=== PATIENT | male | born 1950 | race Caucasian/White ===

== ENCOUNTER 2020-04-04 09:01 | Outpatient (REF) | payer MEDICARE, OTHER, SELFPAY | END 2020-04-04 09:02 | disposition home or self-care (01) | LOC: HO.LAB 09:01 | PROVIDERS: Visit Provider Internal Medicine | DX: Z13.89 Encounter for screening for other disorder (principal) | CPT/HCPCS: 87635 ==

== ENCOUNTER 2020-04-05 06:59 | Outpatient (REF) | payer MEDICARE, OTHER, SELFPAY ==
[2020-04-05 07:19] LABS: COVID-19 Test Negative (Negative)
== END 2020-04-05 07:00 | disposition home or self-care (01) ==
LOC: HO.LAB 06:59
PROVIDERS: Visit Provider Internal Medicine
DX: Z20.828 Contact with and (suspected) exposure to other viral communicable diseases (principal)
CPT/HCPCS: 87635

== ENCOUNTER 2020-04-08 02:08 | Emergency (ER) | payer MEDICARE, OTHER, SELFPAY ==
[2020-04-08 02:28] VITALS: BMI 16.1
--- NOTE | 2020-04-08 02:48 | CT_ITS ---
EXAMINATION: CT ABDOMEN AND PELVIS WITH CONTRAST CLINICAL INFORMATION: Abdominal pain COMPARISON: None TECHNIQUE: Multidetector volumetric images were obtained from the superior aspect of the liver through the pubic symphysis following administration 85 mL of Omnipaque 350 intravenous contrast. Sagittal and coronal reformatted images were obtained on the technologist's workstation. Oral contrast: No This CT examination was performed using dose optimization techniques as appropriate, variously including the following: *Automated exposure control *Adjustment of mA and/or kV according to patient size (this includes techniques or standardized protocols for targeted exams where dose is matched to indication/reason for exam; i.e. extremities or head) *Use of iterative reconstruction technique DLP: 388 mGy-cm FINDINGS: LUNG BASES: The visualized lung bases are unremarkable. LIVER, GALLBLADDER, AND BILIARY TREE: The liver is normal in size, shape, and attenuation. Small hypodensity in the posterior right hepatic lobe is consistent with a cyst. Additional subcentimeter hypodensity in the dome of the right hepatic lobe is too small to characterize. No biliary ductal dilatation is present. The gallbladder is unremarkable with no evidence of radiopaque gallstones, gallbladder wall thickening, or obvious pericholecystic inflammatory changes. PANCREAS: Unremarkable. SPLEEN: Unremarkable. ADRENAL GLANDS: Unremarkable. KIDNEYS AND URETERS: The kidneys are normal in size, shape, and attenuation. No hydronephrosis, hydroureter, or obstructing calculi seen. No perinephric stranding. BLADDER: Partially distended with diffuse mural prominence. GASTROINTESTINAL TRACT: No evidence of bowel obstruction. There is a diffusely thick-walled appearance of the colon with surrounding stranding, raising suspicion for colitis. There is diverticulosis of the descending and sigmoid colon without convincing evidence for a focal diverticulitis. The appendix is unremarkable. No free fluid or free air is seen. ABDOMINAL WALL: Fat-containing inguinal hernias, left greater than right. LYMPH NODES: Normal. VASCULAR: Moderate atherosclerotic calcification is present. PELVIC VISCERA: Prostate gland appears prominent. OSSEOUS STRUCTURES: Scattered endplate osteophytes are present in the spine. CT/CT abdomen pelvis w con IMPRESSION: 1. Diffusely thick-walled appearance of the colon with adjacent stranding, suspicious for colitis which may be infectious or inflammatory. 2. Diverticulosis of the descending and sigmoid colon. 3. Mural prominence of the urinary bladder, which could be secondary to cystitis or chronic outlet obstruction in the setting of a prominent prostate gland.
--- NOTE | 2020-04-08 02:50 | ED.NAVMDI ---
HPI - Nausea/Vomiting/Diarrhea General Chief complaint: Nausea/Vomiting/Diarrhea Stated complaint: diarrhea Time Seen by Provider: 04/08/20 02:38 History of Present Illness HPI Narrative: Patient is a 69-year-old male with a history of having nausea, vomiting, diarrhea for the last 3-4 days. Positive subjective fever at home. No bloody stool. No coughing or congestion or upper respiratory symptoms. The pain is diffuse over the entire abdomen. There is no radiation of the pain. Patient feels weak and tired presents to the emergency department. Has a history of hypertension. Currently is on Amlodipine. History of reflux. Related Data Home Medications Medication Instructions Recorded Confirmed amlodipine 20 mg PO 2XW 04/08/20 04/08/20 omeprazole 20 mg PO DAILY 04/08/20 04/08/20 sertraline 100 mg PO DAILY 04/08/20 04/08/20 Previous Rx's Medication Instructions Recorded ondansetron 4 mg PO TID PRN 5 Days #10 tab 04/08/20 Allergies Allergy/AdvReac Type Severity Reaction Status Date / Time No Known Allergies Allergy Verified 04/08/20 02:39 Review of Systems Review of Systems: Constitutional: No Weight loss, No Fever, No Chills, No Night Sweats, No Fatigue, No Malaise ENT/Mouth: No Hearing loss, No Ear Pain, No Nasal Congestion, No Sinus Pain, No Hoarseness, No sore throat, No Rhinorrhea, No Swallowing Difficulty Eyes: No Eye Pain, No Swelling, No Redness, No Foreign Body, No Discharge, No Vision Changes Cardiovascular: No Chest Pain, No SOB, No Dyspnea on Exertion, No Orthopnea, No Edema, No Palpitations Respiratory: No Cough, No Sputum, No Wheezing, No Smoke Exposure, No Dyspnea Gastrointestinal: No Nausea, No Vomiting, No Diarrhea, No Constipation, No abdominal Pain, No Hematochezia, No Melena Genitourinary: no irregular bleeding, No Dysuria, No Urinary Frequency, No Hematuria, No Urinary Incontinence, No Urgency, No Flank Pain, No Urinary Flow Changes, No Hesitancy Musculoskeletal: No joint pain, No Myalgias, No Joint Swelling Skin: No Skin Lesions, No rash Neuro: No Weakness, No Numbness, No Paresthesias, No Loss of Consciousness, No Dizziness, No Headache Psych: No Anxiety/Panic, No Depression, No SI/HI/AH/VH, No Social Issues, Heme/Lymph: No Bruising, No Bleeding,No Lymphadenopathy Endocrine: No Polyuria, No Polydipsia, No Temperature Intolerance Yes all other systems are reviewed and are negative [facility] Past Medical History Medical History Depression GERD (gastroesophageal reflux disease) Hypertension Social History Social History Alcohol intake: never Smoking Status: Never smoker Smoked in Last 30 Days: No Use of substances other than those prescribed or required for medical reasons: No Advance Directives: No Advance Directives Information Provided: Yes Physical Exam Vital Signs: Vital Signs: Vital Signs Pulse 04/08/20 03:00 68 Body Mass Index 16.1 Appearance: Alert. Oriented X3. No acute distress. Eyes: Pupils equal, round and reactive to light. ENT: Pharynx normal. Neck: Normal inspection. Neck supple. No lymph nodes noted. No crepitus CVS: Normal heart rate and rhythm. Pulses normal. Normal S1 and S2 Respiratory: No respiratory distress. Breath sounds normal. No Wheezing. No rales Abdomen: Soft and nontender. No rigidity. No distention. good BS x4 Skin: Skin warm and dry. Normal skin color. Normal skin turgor. Extremities: No lower extremity edema. Neurovascular intact to all extremities. No Lacerations. No Rash Neuro: Oriented X 3. No motor deficit. No sensory deficit. Moving all extermities. No slurred speech MDM - Nausea/Vomiting/Diarrhea MDM Narrative Medical decision making narrative: Patient given IV fluid Zofran for nausea. CT scan was done and it did not show any gross obstruction, abscess, perforation. It did show signs of colitis consistent with patient's nausea vomiting diarrhea. Patient well-appearing hemoglobin 16 consistent with dehydration. Will drink lots of fluids at home. Zofran for nausea. Currently in stable condition. Medical Records Attestation: I reviewed the patient's medical records. Lab Data Attestation: I reviewed the patient's lab results. Result diagrams: 04/08/20 02:54 04/08/20 02:54 Labs: Lab Results 04/08/20 04/08/20 Range/Units 02:54 02:54 WBC 5.2 (4.8-10.8) X10*3/uL RBC 5.17 (4.60-5.80) X10*6/uL Hgb 16.8 (14.0-18.0) g/dl Hct 47.4 (42-52) % MCV 91.7 (80-98) fL MCH 32.5 (27.0-33.0) pg MCHC 35.4 (31.0-36.0) g/dl RDW 12.2 (11.0-16.0) % Plt Count 243 (160-400) X10*3/uL MPV 9.5 (9.4-12.4) fL Immature Gran % (Auto) Cancelled Neut % (Auto) Cancelled Lymph % (Auto) Cancelled [place] % (Auto) Cancelled Eos % (Auto) Cancelled Baso % (Auto) Cancelled Lymph # (Auto) Cancelled [place] # (Auto) Cancelled Eos # (Auto) Cancelled Baso # (Auto) Cancelled Abs Immat Gran (auto) Cancelled Absolute Neuts (auto) Cancelled Absolute Nucleated RBC 0.000 (0.0-0.012) X10*3/uL Nucleated RBC % (auto) 0.0 (0.0-0.2) /100WBC Neutrophils % (Manual) 46 (45-73) % Band Neutrophils % 13 H (3-5) % Lymphocytes % (Manual) 23 (20-40) % Monocytes % (Manual) 17 H (2-11) % Eosinophils % (Manual) 1 (0-4) % Abs Neuts (Manual) 3.1 (2.2-7.9) X10*3/uL Lymphocytes # (Manual) 1.2 (0.6-4.8) X10*3/uL Monocytes # (Manual) 0.9 (0.0-1.2) X10*3/uL Eosinophils # (Manual) 0.1 (0.0-0.8) X10*3/UL Platelet Estimate NORMAL (NORMAL) Plt Morphology Comment NORMAL RBC Morphology NORMAL Sodium 138 (135-145) mmol/L Potassium 3.7 (3.3-5.1) mmol/l Chloride 102 (96-108) mmol/L Carbon Dioxide 25 (22-29) mmol/L Anion Gap 15 (12-20) BUN 15 (9-16) mg/dL Creatinine 1.12 (0.5-1.4) mg/dL Estim Creat Clear Calc 38.1 Estimated GFR > 60 Random Glucose 136 H (60-115) mg/dL Calcium 8.5 (8.4-10.2) mg/dL Total Bilirubin 1.0 (0.0-1.0) mg/dL Direct Bilirubin 0.4 (0.0-0.5) mg/dL AST 22 (5-37) U/L ALT 36 (0-40) U/L Alkaline Phosphatase 46 (39-117) U/L Total Protein 6.1 L (6.5-8.0) g/dL Albumin 3.7 (3.5-5.0) g/dL Lipase 26 (8-78) U/L Discharge Plan Discharge Clinical Impression: Gastroenteritis, Dehydration Patient Disposition: Home, Self-Care Instructions: Dehydration (ED), Colitis (ED), Acute Nausea and Vomiting (ED) Additional Instructions: Lots of fluids. Close follow-up with her doctor on an outpatient basis. Prescriptions: New ondansetron 4 mg tablet,disintegrating 4 mg PO TID PRN (Reason: nausea and vomiting) 5 Days Qty: 10 RF: 0 No Action sertraline 100 mg Tablet 100 mg PO DAILY RF: 0 amlodipine 10 mg Tablet 20 mg PO 2XW RF: 0 omeprazole 20 mg Capsule,Delayed Release(Dr/Ec) 20 mg PO DAILY RF: 0 Referrals: Physician,Unknown [Primary Care Provider] - 2 days
[2020-04-08] MEDS: 0.9 % Sodium Chloride 1,000 ML 999 ML IVCONT (02:56)
[2020-04-08] MEDS: ondansetron HCL 4 MG/2 ML VIAL IVPUSH (02:56)
[2020-04-08 02:58] LABS: Hematocrit 47.4 % (42-52); Hemoglobin 16.8 g/dl (14.0-18.0); Mean Corpuscular HGB Conc 35.4 g/dl (31.0-36.0); Mean Corpuscular Hemoglobin 32.5 pg (27.0-33.0); Mean Corpuscular Volume 91.7 fL (80-98); Mean Platelet Volume 9.5 fL (9.4-12.4); Platelet Count 243 X10*3/uL (160-400); Red Blood Count 5.17 X10*6/uL (4.60-5.80); Red Cell Distribution Width 12.2 % (11.0-16.0); White Blood Count 5.2 X10*3/uL (4.8-10.8)
[2020-04-08 03:00] VITALS: PULSE 68
[2020-04-08 03:26] LABS: Alanine Aminotransferase 36 U/L (0-40); Albumin Level 3.7 g/dL (3.5-5.0); Alkaline Phosphatase 46 U/L (39-117); Anion Gap 15 (12-20); Aspartate Amino Transferase 22 U/L (5-37); Bilirubin Direct 0.4 mg/dL (0.0-0.5); Blood Urea Nitrogen 15 mg/dL (9-16); Calcium 8.5 mg/dL (8.4-10.2); Carbon Dioxide 25 mmol/L (22-29); Chloride 102 mmol/L (96-108); Creatinine Clr Calc Pharmacy 38.1; Estimated Glomerular Filt Rate > 60; Glucose Random 136 mg/dL (60-115); Lipase 26 U/L (8-78); Potassium 3.7 mmol/l (3.3-5.1); Sodium 138 mmol/L (135-145); Total Protein 6.1 g/dL (6.5-8.0)
[2020-04-08 03:28] LABS: Band Neutrophils Percent 13 % (3-5); Eosinophils Absolute Manual 0.1 X10*3/UL (0.0-0.8); Eosinophils Percent Manual 1 % (0-4); Lymphocytes Absolute Manual 1.2 X10*3/uL (0.6-4.8); Lymphocytes Percent Manual 23 % (20-40); Monocytes Absolute Manual 0.9 X10*3/uL (0.0-1.2); Monocytes Percent Manual 17 % (2-11); Neutrophils Absolute Manual 3.1 X10*3/uL (2.2-7.9); Neutrophils Percent Manual 46 % (45-73); Platelet Estimate NORMAL (NORMAL); Platelet Morphology Comment NORMAL; RBC Morphology NORMAL
[2020-04-08] MEDS: iohexoL 350 MG/ML 100 ML INFUS..BTL 85 ML IV (04:46)
== END 2020-04-08 05:33 | disposition home or self-care (01) ==
PROVIDERS: Emergency Provider Emergency Medicine Emergency Medical Services
DX: K52.9 Noninfective gastroenteritis and colitis, unspecified (principal); E86.0 Dehydration; Z79.899 Other long term (current) drug therapy
CPT/HCPCS: 36415; 74177; 80048; 80076; 83690; 85007; 85027; 96361; 96374; 99284; J2405

== ENCOUNTER → 2021-02-14 14:32 | Outpatient (BNVA) | payer OTHER, SELFPAY | PROVIDERS: Visit Provider Urology | DX: N40.1 Benign prostatic hyperplasia with lower urinary tract symptoms (principal); N13.8 Other obstructive and reflux uropathy | CPT/HCPCS: 51798; 81002; 99202 ==

== ENCOUNTER → 2021-08-15 15:47 | Outpatient (BNVA) | payer OTHER, MEDICARE, SELFPAY | PROVIDERS: Visit Provider Urology ==

== ENCOUNTER 2022-02-17 16:11 | Outpatient (REF) | payer OTHER, SELFPAY ==
[2022-02-17 17:55] LABS: Prostate Specific Antigen 3.27 ng/mL (<0.05-4.0)
== END 2022-02-17 16:12 | disposition home or self-care (01) ==
LOC: HO.LAB 16:11
PROVIDERS: PCP Physician Assistant; Visit Provider Urology
DX: Z12.5 Encounter for screening for malignant neoplasm of prostate (principal); N40.1 Benign prostatic hyperplasia with lower urinary tract symptoms; N13.8 Other obstructive and reflux uropathy
CPT/HCPCS: 36415; 84153

== ENCOUNTER 2023-02-12 08:22 | Outpatient (REF) | payer OTHER, SELFPAY ==
[2023-02-12 11:06] LABS: Prostate Specific Antigen 3.78 ng/mL (<0.05-4.0)
== END 2023-02-12 08:23 | disposition home or self-care (01) ==
LOC: HO.LAB 08:22
PROVIDERS: PCP Physician Assistant; Visit Provider Urology
DX: Z12.5 Encounter for screening for malignant neoplasm of prostate (principal); N40.1 Benign prostatic hyperplasia with lower urinary tract symptoms; N13.8 Other obstructive and reflux uropathy
CPT/HCPCS: 36415; 84153

== ENCOUNTER 2023-02-26 11:25 | Outpatient (AMB) | payer OTHER, SELFPAY ==
--- NOTE | 2023-02-26 11:26 | A.OFFVIS_ITS ---
Intake Intake Visit Reasons: 1Y PSA(set) Intake Note: Patient presents for follow up PSA Urology Medications: none Blood Thinner: none Consumer Electronic Retail Specialist Required: No Accompanied by: Self / Same As Patient Allergies No Known Allergies Allergy (Verified 02/26/23 11:26) HPI HPI Comments History of Present Illness Details Cesar is a very pleasant male. He is seen by Dr Mckinney. He is seen for the following urologic conditions - asymmetric prostate exam - elevated PSA Lab work stable 12 month follow-up KATIE 2+ prostate soft Lower urinary tract symptoms Nocturia 1-2 Effective force of stream Minimal hesitancy PSA 01/01 3.2, 03/05 3.3 KATIE asymmetric prostate right larger than left 6 month follow-up PFSH Medical History Depression GERD (gastroesophageal reflux disease) Hypertension Surgical History No pertinent past surgical history Social History Alcohol intake: current Alcohol intake frequency: holidays/special occasions only Patient Tobacco Use Status: Never used Tobacco Review of Systems Const Denies chills and Denies fever(s) Card Reports no additional complaints and Denies syncope Resp Denies cough GI Denies abdominal pain and Denies heartburn Reports as per HPI and Denies change in libido Neuro Denies syncope Psych Denies change in libido Endo Denies change in libido Physical Exam Const General: cooperative, healthy appearing, comfortable and no acute distress Orientation/consciousness: patient oriented x3 HEENT Face and sinus: Yes normal facial exam Mouth: moist mucous membranes Neck Neck: Yes normal visual inspection, Yes full ROM and Yes trachea midline Chest Chest palpation & inspection: normal inspection of the chest Resp Effort & Inspection: normal respiratory effort, able to speak in complete sentences and no respiratory distress GI Inspection: Yes normal to inspection Rectal Exam - Male: Yes normal sphincter tone and Yes prostate normal Male General Exam: Yes normal external exam Penis: normal penis and circumcised Meatus: meatus normal Scrotum: scrotum normal Testes: Testes normal Back/Spine/Pelvis Cervical Spine: normal cervical lordosis Thoracic/Lumbar Spine: thoracic and lumbar spine normal to inspection Skin General skin exam: no rashes or lesions noted Neuro General: patient oriented x3, gait normal, tone normal and moves all extremities Extrem General: Yes normal to inspection and Yes capillary refill normal Assessment & Plan Assessment & Plan (1) Elevated PSA: Code(s): R97.20 - Elevated prostate specific antigen [PSA] (2) BPH w urinary obs/LUTS: Code(s): N40.1 - Benign prostatic hyperplasia with lower urinary tract symptoms; N13.8 - Other obstructive and reflux uropathy Plan Twelve month follow-up Orders: Orders PSA,Total (Free>4and<10) 364 Days R97.20 - Elevated prostate specific antigen [PSA] Patient Instructions: Imaging studies, laboratory and physical exam results were discussed and reviewed in detail. No major barriers to patient understanding were identified. An opportunity to ask questions regarding the treatment plan was provided. All questions were answered. The patient expressed understanding and agreement with the above treatment plan. The patient is aware they should contact our office by phone for worsening of their current condition or the appearance of new urologic symptoms. Compliance is encouraged with any medications and followup testing that is ordered. It is a privilege to participate in the urologic care of your patient. If you have any questions or concerns regarding treatment for the above conditions, or other urologic issues, please do not hesitate to contact me. The office telephone contact is [phone]. This note is constructed using voice recognition software. While every effort has been made to ensure accuracy fruit i farmworker errors may have been included. Yours sincerely, Dr Ernesto Rivero MD, [facility] - Urology Providers of Expert, Compassionate Care for the Genitourinary System Coding Level of Care Code Est Pt Level 4 (95235) Diagnoses Elevated PSA R97.20 BPH w urinary obs/LUTS N40.1; N13.8
== END 2023-02-26 11:51 | disposition home or self-care (01) ==
PROVIDERS: PCP Physician Assistant; Visit Provider Urology
DX: R97.20 Elevated prostate specific antigen [PSA] (principal); N40.1 Benign prostatic hyperplasia with lower urinary tract symptoms; N13.8 Other obstructive and reflux uropathy
CPT/HCPCS: 99213

== ENCOUNTER → 2023-02-26 11:25 | Outpatient (BNVA) | payer OTHER, SELFPAY | PROVIDERS: PCP Physician Assistant; Visit Provider Urology | DX: R97.20 Elevated prostate specific antigen [PSA] (principal); N40.1 Benign prostatic hyperplasia with lower urinary tract symptoms; N13.8 Other obstructive and reflux uropathy | CPT/HCPCS: 99212 ==

== ENCOUNTER 2023-08-04 08:19 | Emergency (ER) | payer OTHER, SELFPAY ==
--- NOTE | ~2023-08-04 | CT_ITS ---
EXAMINATION: CTA OF THE HEAD AND NECK CLINICAL INFORMATION: Altered mental status. COMPARISON: Head CT from 08/04/2023. TECHNIQUE: Test bolus sequences followed by intravenous administration 70 mL of Omnipaque 350. Helical imaging was performed in the axial plane from the mediastinum to the skull vertex. Delayed postcontrast imaging of the head was also performed. The data was processed at the medical technologist chemistry's workstation for generation of MIP sequences. Three-dimensional volume rendered reformatted images were also generated at an offline 3-D workstation. Stenoses are assessed in accordance with NASCET criteria unless otherwise indicated. This CT examination was performed using dose optimization techniques as appropriate, variously including the following: *Automated exposure control *Adjustment of mA and/or kV according to patient size (this includes techniques or standardized protocols for targeted exams where dose is matched to indication/reason for exam; i.e. extremities or head) *Use of iterative reconstruction technique DLP: 1545 mGy-cm. FINDINGS: CTA neck: The imaged aortic arch and origins of the great vessels are normal. Mild eccentric atheromatous plaque visible in the common carotid arteries without significant stenosis. The carotid bifurcations are normal. Mild eccentric lipid-rich plaque visible in the proximal left internal carotid artery which is otherwise patent. The right ICA is normal. There is an occlusion at the origin of the right vertebral artery with absence of contrast in the V1 segment. There is contrast visible in the V2 segment of the right vertebral artery at the C6 level. There is luminal irregularity in the right vertebral artery along the V2 segment with jocc-ld-dgolymch areas of stenotic narrowing. A nonocclusive, faint dissection flap is in question within the vessel at the C4 level. There is an absence of contrast within the left vertebral artery in the V1 segment and subtotally throughout the V2 segment with faint areas of contrast opacification in the vessel at the C4 level, possibly due to collateral flow from a muscular branch. In the distal V2 to V3 segments of the left vertebral artery at the C1-C2 levels, there is contrast within the left vertebral artery from collateralization of adjacent intramuscular branches. The upper cervical left vertebral artery demonstrates areas of luminal irregularity, otherwise patent. The soft tissues of the neck are unremarkable. Moderate spondylitic changes noted at the C6-C7 level. The imaged portions of the lungs are relatively well aerated with mild subsegmental atelectatic changes. CTA head: The intradural vertebral arteries and basilar artery are patent and opacify normally with contrast. There is subtotal occlusion of the proximal left posterior cerebral artery with faint linear contrast in the P1 and P2 segments. There is normal contrast opacification distally in the P2 segment. Contrast is also normally seen opacifying the P3 and P4 segments of the left DINKEY OPERATOR SLAG. The right posterior cerebral artery is widely patent. The internal carotid arteries are of normal caliber. The RADHA and MCA vascular complexes bilaterally are normal. There is a small age-indeterminate wedge-shaped infarct in the posterior right cerebellar hemisphere. The venous sinuses opacify normally. Incidental 2 cm retention cyst along the floor of the left maxillary sinus. CT/CT angio head neck stroke IMPRESSION: Absence of contrast in the proximal right vertebral artery as described with reconstitution in the proximal V2 segment at the C6 level. Luminal irregularity and potential, nonocclusive dissection flap in the mid cervical right vertebral artery without propagation into the upper cervical and intracranial segments. Absence of contrast within the proximal left vertebral artery and most of the V2 segment with faint areas of contrast opacification due to collateralization from intramuscular branches at the C4-C5 level and superiorly at the lower C2 level. Mild luminal irregularities in the distal V3 segment of the left vertebral artery. Intracranially, the vertebral arteries and basilar artery opacify normally. Age indeterminate subtotal occlusion of the proximal left posterior cerebral artery with contrast opacification visible distally in the P3/P4 segments. 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 Correlate for referred acute symptomatology. Age-indeterminate focal infarct in the posterior right cerebellar hemisphere. No obvious loss of cwvg-fb-wiliu matter differentiation in the left DINKEY OPERATOR SLAG vascular territory. Further evaluation with MRI is recommended to assess for subtle acute findings. These imaging findings were reported to Dr. Landa at 9:25 AM on 08/04/2023.
--- NOTE | ~2023-08-04 | CT_ITS ---
EXAMINATION: CT HEAD WITHOUT CONTRAST (STROKE PROTOCOL) CLINICAL INFORMATION: Altered mental status COMPARISON: None TECHNIQUE: Contiguous axial imaging was performed from the skull base to vertex without intravenous administration of contrast. This CT examination was performed using dose optimization techniques as appropriate, variously including the following: *Automated exposure control *Adjustment of mA and/or kV according to patient size (this includes techniques or standardized protocols for targeted exams where dose is matched to indication/reason for exam; i.e. extremities or head) *Use of iterative reconstruction technique DLP: 669 mGy-cm FINDINGS: There is no evidence of acute intracranial hemorrhage or territorial infarction. Chronic white matter small vessel ischemic changes. No abnormal mass effect or midline shift is seen. Sweeney to white matter differentiation is well preserved. No extra-axial fluid collections are identified. The ventricles are normal in size. There is no abnormal attenuation within the brain parenchyma. The osseous structures and soft tissues are normal. The mastoid air cells and visualized portions of the paranasal sinuses are well aerated. CT/CT head for stroke IMPRESSION: 1. No acute intracranial pathology. 2. Chronic white matter small vessel ischemic changes. This critical result was discussed with Humza Landa by telephone on 08/04/2023 8:44 AM and it was ascertained that the content and urgency of the report was understood at the time of direct communication.
[2023-08-04 08:23] VITALS: BP 123/56; BP 152/74; PULSE 56; PULSE 98; RESP 11; TEMP 36.9; O2SAT 97; O2SAT 98; BMI 24.4
--- NOTE | 2023-08-04 08:25 | ECG_ITS ---
Test Reason : STROKE Blood Pressure : / mmHG Vent. Rate : 060 BPM Atrial Rate : 060 BPM P-R Int : 148 ms QRS Dur : 094 ms QT Int : 388 ms P-R-T Axes : 049 029 017 degrees QTc Int : 388 ms Normal sinus rhythm Normal ECG No previous ECGs available Referred By: Humza Landa Electronically Signed By:CHELSI BRANDT MD
[2023-08-04 08:27] LABS: Prothrombin Time Whole Bld POC 13.1 sec (11.1-13.5); ~PT, ~INR - Anti Coag Clinic 1.1 (0.9-1.1)
[2023-08-04 08:28] LABS: Glucose, Whole Blood 96 mg/dL (60-115)
[2023-08-04] MEDS: iohexoL 350 MG/ML 100 ML INFUS..BTL IV (08:53)
[2023-08-04 09:10] LABS: MANUAL DIFF FLAG NO
[2023-08-04 09:16] LABS: Basophils Percent Auto 0.4 % (0-2); Eosinophils Absolute Auto 0.2 X10*3/uL (0.0-0.4); Eosinophils Percent Auto 4.6 % (0-4); Hematocrit 44.3 % (42.0-52.0); Hemoglobin 15.3 g/dl (14.0-18.0); Imm Gran Abs Auto 0.01 X10*3/uL (0.00-0.03); Imm Gran Pct Auto 0.2 % (0.0-0.4); Lymphocytes Absolute Auto 1.7 X10*3/uL (1.2-4.9); Lymphocytes Percent Auto 32.3 % (20-40); Mean Corpuscular HGB Conc 34.5 g/dl (31.0-36.0); Mean Corpuscular Volume 89.7 fL (80.0-98.0); Mean Platelet Volume 9.6 fL (9.4-12.4); Monocytes Absolute Auto 0.4 X10*3/uL (0.1-1.2); Monocytes Percent Auto 7.1 % (2-11); Neutrophils Absolute Auto 2.9 x10*3/uL (2.0-8.3); Neutrophils Percent Auto 55.4 % (45-73); Platelet Count 261 X10*3/uL (160-400); Prothrombin Time 12.1 SEC (11.1-13.3); Red Blood Count 4.94 X10*6/uL (4.60-5.80); Red Cell Distribution Width 12.7 % (11.0-16.0); White Blood Count 5.2 X10*3/uL (4.8-10.8)
--- NOTE | 2023-08-04 09:19 | PC.NURSE ---
PER EMS-BUSINESS DEVELOPMENT COORDINATOR FOUND PT UNRESPONSIVE, LAST KNOWN WELL AROUND 8 PM LAST NIGHT. CPR INITIATED BY BUSINESS DEVELOPMENT COORDINATOR. EPISODE LASTED 45-50 MINS. PREVIOUSLY SEEN HERE FOR SIMILAR EPISODE. UNRESPONSIVE ON ARRIVAL TO ED, 5 MINS AFTER ARRIVAL PT BECAME RESPONSIVE. PT TAKE TO CT SCAN.
[2023-08-04 09:27] LABS: Stroke Lab Use COMPLETE
[2023-08-04 09:30] LABS: Anion Gap 10 (12-20); Blood Urea Nitrogen 14 mg/dL (9-16); C Reactive Protein 0.17 mg/dL (< or = 0.50); Calcium 8.9 mg/dL (8.4-10.2); Carbon Dioxide 25 mmol/L (22-29); Chloride 110 mmol/L (96-108); Creatinine Clr Calc Pharmacy 60.6; Estimated Glomerular Filt Rate > 60; Glucose Random 99 mg/dL (60-115); Potassium 4.2 mmol/L (3.3-5.1); Sodium 141 mmol/L (135-145)
[2023-08-04 09:33] LABS: Troponin-I High Sensitivity 7.6 ng/L (<3.5-35.0)
--- NOTE | 2023-08-04 09:59 | ED.NEUROSD ---
HPI - Neuro Symptoms/Deficit General Chief Complaint: Stroke Stated Complaint: STROKE ALERT Time Seen by Provider: 08/04/23 08:21 History of Present Illness HPI Narrative: The patient is a 73-year-old male who lives with his partner. Apparently he was in a good state of health yesterday evening when he went to bed at around 22:00. This morning at around 07:30 his partner noticed that his breathing pattern changed. It was very sonorous and irregular. She tried to wake him up but he was unresponsive and she called 911. The partner says that the patient has had similar but less severe episodes in the past and has been seen at [facility]. Asked the paramedics to bring the patient to [facility] by the paramedics were concerned about the patient's respiratory status and felt they should bring him to the nearest hospital. The patient was unresponsive with paramedics. His blood sugar was unremarkable. On arrival here the patient was unresponsive to we will stimulation and grimaced to painful stimulation. The partner arrived and was able to tell me that the patient has had some similar but less severe episodes last year and has been seen at [facility]. The last hospitalization include a consent was in April 2023. 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 The partner says the patient has had some minor episodes since the last [facility] hospitalization and did not seek medical care on those occasions. The patient was initially unresponsive but later able to communicate somewhat and had no specific complaints. Related Data Home Medications Medication Instructions Recorded Confirmed amlodipine 10 mg tablet 20 mg PO 2XW 04/08/20 02/20/22 omeprazole 20 mg capsule,delayed 20 mg PO DAILY 04/08/20 02/20/22 release sertraline 100 mg tablet 100 mg PO DAILY 04/08/20 02/20/22 Previous Rx's Medication Instructions Recorded ondansetron 4 mg disintegrating 4 mg PO TID PRN nausea and 04/08/20 tablet vomiting 5 days #10 tabs Allergies Allergy/AdvReac Type Severity Reaction Status Date / Time No Known Allergies Allergy Verified 08/04/23 08:58 Review of Systems Review of Systems: Yes all other systems are reviewed and are negative [facility] Past Medical History Medical History Depression GERD (gastroesophageal reflux disease) Hypertension Surgical History No pertinent past surgical history Social History Social History Alcohol intake: current Alcohol intake frequency: holidays/special occasions only Alcohol type: beer and wine Patient Tobacco Use Status: Never used Tobacco Smoked in Last 30 Days: Yes Use of substances other than those prescribed or required for medical reasons: No Advance Directives: Yes Advance Directives on File: No Physical Exam Vital Signs: Vital Signs: Last Vital Signs Temp 98.4 F 08/04/23 08:23 Pulse 98 08/04/23 08:23 Resp 11 L 08/04/23 08:23 BP 152/74 H 08/04/23 08:23 Pulse Ox 97 08/04/23 08:23 O2 Del Method Room Air 08/04/23 08:23 BMI result Body Mass Index 24.4 Const: Other: The patient was initially unresponsive to verbal stimuli. Pupils were small and equal. With painful stimuli the patient grimaced. Pupils dilated slightly. On my initial exam the patient seemed to have some rigidity in his extremities HEENT: Other: Initially there was no obvious facial asymmetry. Later there seemed to be right-sided facial weakness Eyes: Other: Small and equal. They dilated with painful stimulation. Lateral gaze seems intact bilaterally but the patient has a right-sided hemianopsia Resp: Effort & Inspection: normal respiratory effort Auscultation: clear to auscultation bilaterally Cardio: Rate: regular rate Rhythm: regular rhythm Heart sounds: S1 normal heart sound present and S2 normal heart sound present GI: Other: Abdomen is soft and non Skin: Other: Dry and unremarkable Neuro: Other: The patient was initially unresponsive to verbal stimuli. Grimaced to painful stimulation. The patient seemed to have some rigidity of his upper extremities. Later the patient was awake. At that point he seemed to have a right hemianopsia, a right facial droop, and right arm weakness as well as difficulty with right finger-nose. NIH stroke scale is at least 6 Extrem: Other: No peripheral edema Medications Administered Discontinued Medications Generic Name Dose Route Start Last Admin Trade Name Freq PRN Reason Stop Dose Admin Iohexol 100 ml 08/04/23 08:53 08/04/23 08:53 Iohexol 350 Mg/Ml 100 Ml Infus..Btl IV 08/04/23 08:54 70 ml ONCE ONE Administration Medical Decision Making Medical Decision Making [facility] Narrative: The patient arrived by ambulance presenting with altered mental status and unresponsiveness. The patient's vital signs were initially unremarkable with a normal blood pressure. There was some rigidity to the patient's extremities that made me think he might be having a seizure. Paramedics told me that previous hospitalizations [facility] had suggested that he might have some kind of vertebrobasilar insufficiency. The patient was therefore made a code stroke and had a noncontrast head CT as well as a CT angio of the head and neck. The noncontrast head CT was negative. Following the CT scans the patient woke up spontaneously and had right-sided deficits. Since the patient's last known well was at 22:00 last night he has not a candidate for thrombolytic therapy. 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 Additionally there was low flow in the left vertebral artery. The left ICT HELP DESK TECHNICIAN also shows a subtotal occlusion. I spoke to our neurologist who recommended consultation with vascular neurology at [facility]. I spoke with Dr. Ramirez who will be accepting the patient in transfer to the emergency room at [facility] for further evaluation. While in the emergency room here the patient has neurological deficits have waxed and waned. At 1 point he seemed to have complete resolution of his right hemianopsia and his right arm weakness but then the returned as did the hemianopsia. Lab Data 08/04/23 09:02 08/04/23 09:02 Labs: Lab Results 08/04/23 08/04/23 08/04/23 Range/Units 08:22 08:24 09:02 WBC 5.2 (4.8-10.8) X10*3/uL RBC 4.94 (4.60-5.80) X10*6/uL Hgb 15.3 (14.0-18.0) g/dl Hct 44.3 (42.0-52.0) % MCV 89.7 (80.0-98.0) fL MCH 31.0 (27.0-33.0) pg MCHC 34.5 (31.0-36.0) g/dl RDW 12.7 (11.0-16.0) % Plt Count 261 (160-400) X10*3/uL MPV 9.6 (9.4-12.4) fL Immature Gran % (Auto) 0.2 (0.0-0.4) % Neut % (Auto) 55.4 (45-73) % Lymph % (Auto) 32.3 (20-40) % [place] % (Auto) 7.1 (2-11) % Eos % (Auto) 4.6 H (0-4) % Baso % (Auto) 0.4 (0-2) % Lymph # (Auto) 1.7 (1.2-4.9) X10*3/uL [place] # (Auto) 0.4 (0.1-1.2) X10*3/uL Eos # (Auto) 0.2 (0.0-0.4) X10*3/uL Baso # (Auto) 0.0 (0.0-0.2) X10*3/uL Abs Immat Gran (auto) 0.01 (0.00-0.03) X10*3/uL Absolute Neuts (auto) 2.9 (2.0-8.3) x10*3/uL Absolute Nucleated RBC 0.000 (0.0-0.012) X10*3/uL Nucleated RBC % (auto) 0.0 (0.0-0.2) /100WBC PT 12.1 (11.1-13.3) SEC Whole Blood PT 13.1 (11.1-13.5) sec INR 1.0 (0.9-1.1) Whole Blood INR 1.1 (0.9-1.1) APTT 33.0 (26.0-36.8) SEC Sodium 141 (135-145) mmol/L Potassium 4.2 (3.3-5.1) mmol/L Chloride 110 H (96-108) mmol/L Carbon Dioxide 25 (22-29) mmol/L Anion Gap 10 L (12-20) BUN 14 (9-16) mg/dL Creatinine 0.93 (0.5-1.4) mg/dL Estim Creat Clear Calc 60.6 Estimated GFR > 60 POC Glucose 96 (60-115) mg/dL Random Glucose 99 (60-115) mg/dL Calcium 8.9 (8.4-10.2) mg/dL Total Creatine Kinase 134 (38-174) U/L Troponin I High Sens 7.6 (<3.5-35.0) ng/L C-Reactive Protein 0.17 (< or = 0.50) mg/dL Critical Care Time Critical Care Time Critical Care Time: Yes Total Critical Care Time: 45 Attestation: The patient was critically ill with a high probability of imminent or life-threatening deterioration. ?I spent greater than 30 minutes of discontinuous time evaluating the patient, delivering critical care at the bedside, discussing evaluating data with consultants. ?Critical care time does not include time spent performing separately billable procedures or teaching. ?Time spent performing critical care with 45 minutes. Discharge Plan Discharge Clinical Impression: Right homonymous hemianopsia, Weakness of right arm, Transient ischemic attack, posterior circulation, acute Patient Disposition: [facility] Transfer Details: [facility] Prescriptions: No Action sertraline 100 mg Tablet 100 mg PO DAILY amlodipine 10 mg Tablet 20 mg PO 2XW omeprazole 20 mg Capsule,Delayed Release(Dr/Ec) 20 mg PO DAILY ondansetron 4 mg tablet,disintegrating 4 mg PO TID PRN (Reason: nausea and vomiting) 5 Days Qty: 10 0RF
[2023-08-04] MEDS: 0.9 % Sodium Chloride 1,000 ML 999 ML IV (10:18)
--- NOTE | 2023-08-04 10:27 | PC.NURSE ---
Pt accepted [facility] for further eval, pt aware of plan. Pt transferred via [place] ambulance, his partner was at his bedside during transfer.
--- NOTE | 2023-08-04 10:53 | MHC.STROKE ---
0148 Met with patient and partner Idalia. Pt is awake, alert and answering questions appropriately. Idalia reports that patient has been having episodes since March. During these episodes, patient stiffens and postures some lasting as long as 10 minutes. Idalia reports that 24 hours EEG monitoring was done and was negative. Also reports that the patient wore a holter monitor for 30 days and that they are awaiting the results of that. According to Idalia, patient sees Dr. 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 Today, Idalia called EMS due to breathing pattern irregularity. Patient and partner went to bed at 2200 yesterday and she noted the breathing pattern this morning at 0730. Patient was unresponsive upon arrival to ED. Upon my meeting with patient and assessment timing, patient was alert, awake, and answering questions appropriately. R sided facial droop noted, tongue midline, R sided hemianopsia and R sided palmar drift. Poor finger to nose test on R side. Good muscle strength bilaterally to lower extremities. ED provider spoke with Dr. Guerrero and it was suggested to reach out to [facility] to see if transfer was appropriate. 1000 ED provider spoke with neurology at [facility]. Discussed CTA findings and plan is to transfer patient to [facility] ED. Patient and partner updated on plan of care and agreeable to plan. All questions answered.
== END 2023-08-04 10:00 | disposition short-term general hospital (02) ==
PROVIDERS: Emergency Provider Emergency Medicine; PCP Physician Assistant
DX: I63.431 Cerebral infarction due to embolism of right posterior cerebral artery (principal); H53.461 Homonymous bilateral field defects, right side; R53.1 Weakness; R29.810 Facial weakness; R29.706 NIHSS score 6; G45.0 Vertebro-basilar artery syndrome; I10 Essential (primary) hypertension; Z79.899 Other long term (current) drug therapy
CPT/HCPCS: 36415; 70450; 70496; 70498; 80048; 82550; 82947; 84484; 85025; 85610; 85730; 86140; 93005; 99285; Q9967

== ENCOUNTER → 2023-08-04 08:25 | Outpatient (BNV) | payer OTHER, MEDICARE, SELFPAY | PROVIDERS: Emergency Provider Emergency Medicine; PCP Physician Assistant; Visit Provider Internal Medicine Cardiovascular Disease | DX: I63.9 Cerebral infarction, unspecified (principal) | CPT/HCPCS: 93010 ==

== ENCOUNTER 2024-02-29 13:52 | Outpatient (REF) | payer OTHER, SELFPAY ==
[2024-02-29 16:15] LABS: PSA,Total (Free>4and<10) 2.57 ng/mL (0.00-4.00)
== END 2024-02-29 13:53 | disposition home or self-care (01) ==
LOC: HO.LAB 13:52
PROVIDERS: PCP Physician Assistant; Visit Provider Urology
DX: R97.20 Elevated prostate specific antigen [PSA] (principal); Z12.5 Encounter for screening for malignant neoplasm of prostate
CPT/HCPCS: 36415; 84153

== ENCOUNTER 2024-03-21 09:57 | Outpatient (AMB) | payer OTHER, SELFPAY ==
--- NOTE | 2024-03-21 09:58 | MHC.OFFVIS ---
Intake Visit Reasons: 1Y PSA(set) Intake Note: Patient is Present for Telephone Follow Up PSA Urology Med: None Antibiotic Allergy:None Blood Thinner: None Recent PSA: 02/29/2024- 2.57 Print Traffic Manager Required: No Accompanied by: Self / Same As Patient Allergies No Known Allergies Allergy (Verified 03/21/24 10:00) HPI Comments Details: Cesar is a very pleasant male. He is seen by Dr Mckinney. He is seen for the following urologic conditions - asymmetric prostate exam - elevated PSA Telemedicine Evaluation 15 min Consultation [facility] [employer] [facility] work stable 12 month follow-up KATIE 2+ prostate soft on prior exam Lower urinary tract symptoms Nocturia 1-2 Effective force of stream Minimal hesitancy PSA 01/01 3.2, 03/05 3.3, 03/06 3.8, 03/07 2.6 PFSH Medical History GERD (gastroesophageal reflux disease) Hypertension Depression Surgical History No pertinent past surgical history Social History Alcohol intake: current Alcohol intake frequency: holidays/special occasions only Alcohol type: beer and wine Patient Tobacco Use Status: Never used Tobacco Telehealth Telehealth Location of provider rendering services: practice address Location of patient: address on file Patient Identification confirmed using: Name, : Yes Telehealth method: video Patient verbally consented to treatment: Yes Patient verbally consented to billing insurance company: Yes Patient informed of any privacy concerns related to visit: Yes Assessment & Plan Assessment & Plan (1) Elevated PSA: Code(s): R97.20 - Elevated prostate specific antigen [PSA] Category: Medical (2) BPH w urinary obs/LUTS: Code(s): N40.1 - Benign prostatic hyperplasia with lower urinary tract symptoms; N13.8 - Other obstructive and reflux uropathy Category: Medical Plan Twelve month follow-up Check PSA Orders: Orders Prostate Specific Antigen 364 Days R97.20 - Elevated prostate specific antigen [PSA] Patient Instructions: Imaging studies, laboratory and physical exam results were discussed and reviewed in detail. No major barriers to patient understanding were identified. An opportunity to ask questions regarding the treatment plan was provided. All questions were answered. The patient expressed understanding and agreement with the above treatment plan. The patient is aware they should contact our office by phone for worsening of their current condition or the appearance of new urologic symptoms. Compliance is encouraged with any medications and followup testing that is ordered. It is a privilege to participate in the urologic care of your patient. If you have any questions or concerns regarding treatment for the above conditions, or other urologic issues, please do not hesitate to contact me. The office telephone contact is [phone]. This note is constructed using voice recognition software. While every effort has been made to ensure accuracy plant taxonomist errors may have been included. Yours sincerely, Dr Ernesto Rivero MD, [facility] Providers of Expert, Compassionate Care for the Genitourinary System Coding Level of Care Code Tele Est Pt Level 4 (98637) Diagnoses Elevated PSA R97.20 BPH w urinary obs/LUTS N40.1; N13.8
== END 2024-03-21 10:45 | disposition home or self-care (01) ==
LOC: HO.HUSH 09:57
PROVIDERS: PCP Physician Assistant; Referring Provider Physician Assistant; Visit Provider Urology
DX: R97.20 Elevated prostate specific antigen [PSA] (principal); N40.1 Benign prostatic hyperplasia with lower urinary tract symptoms; N13.8 Other obstructive and reflux uropathy
CPT/HCPCS: 99214

== ENCOUNTER → 2024-03-21 09:57 | Outpatient (BNVA) | payer OTHER, SELFPAY | PROVIDERS: PCP Physician Assistant; Visit Provider Urology ==

== ENCOUNTER 2025-03-13 10:49 | Outpatient (REF) | payer OTHER, SELFPAY ==
--- OUTSIDE RECORDS SUMMARY | 2025-03-13 12:11 | XMS_ITS | Encounter Summary ---
Author Organization [facility] Address [address] [place] [address] [place] [phone] Phone Care Team Providers Care Double Needle Operator Lockstitch Name Role Phone Yvon Shea Primary Care Provid er Encounter Details Date Type Department Care Team (Late st Contact Info) Description 04/08/2023 Procedure Pass [facility], [address] [address] Social History Tobacco Use Types Packs/Day Years Used Date Smoking Tobacco: Never Smokeless Tobacco: Never Alcohol Use Standard Drinks/Week Comments Yes 7 (1 standard drink = 0.6 oz pur e alcohol) Education Answer Date Recorded Are you interested in more education? Not on julio e 10/12/2022 Are you concerned about learning? Not on file 10/12/2022 No 10/12/2022 No 10/12/2022 Digital Access Answer Date Recorded No 11/08/2022 No 11/08/2022 Reliable internet access at home? Not on file 11/08/2022 Device with a working camera? Not on file Intimate Partner Violence Answer Date R ecorded Are you denied basic needs s uch as food, clothing, or medical care? No 04/10/2023 In the past 12 months have y ou been in a relationship with a person who hurts, threatens, or tries to control you? No 04/10/2023 Are you denied basic needs s uch as food, clothing, or medical care? No 04/10/2023 In the past 12 months have y ou been in a relationship with a person who hurts, threatens, or tries to control you? No 04/10/2023 Sex and Gender Information Value Date Recorded Sex Assigned at Male 02/25/2021 1:44 PM EDT Legal Sex Male 5:23 PM EST Gender Identity Male 02/25/2021 1:44 PM EDT Sexual Orientation Straight 04/26/2023 9: 16 AM EST documented as of this encounter Functional Status * Calculated C-SSRS Risk Score (Lifetime/Recent) Answer Date of Assessment Author No Risk Indicated 04/10/2023 4:25 PM EDT Tacho Villa RN * [place] Suicide Severity Rating Scale (Screener/Recent Self-Report) Question Answer Date of Assessment Author 1. Wish to be (Past 1 Month) No 04/10/2023 4:25 PM EDT Amanda Bhardwaj RN 2. Non-Specific Active Suicidal Thoughts (Past 1 Month) No 04/10/2023 4:25 PM EDT Amanda Bhardwaj RN 6. Suicidal Behavior (Lifetime) No 04/10/2023 4:25 PM EDT Amanda Bhardwaj RN documented as of this encounter Plan of Treatment Not on file documented as of this encounter Visit Diagnoses Not on filedocumented in this encounter Care Teams Double Needle Operator Lockstitch Relationship Specialty Start Date End Date Yvon Shea PA [address] [address] PCP - General 02/25/21 documented as of this encounter Additional Source Comments The information contained in this document represents components of the legal health record. It is not the complete legal health record.[facility]
--- OUTSIDE RECORDS SUMMARY | 2025-03-13 12:11 | XMS_ITS | Encounter Summary ---
Author Organization [facility] Address [address] [place] [address] [place] [phone] Phone Care Team Providers Care Mechanical Assembler Name Role Phone Yvon Shea Primary Care Provid er Encounter Details Date Type Department Care Team (Late st Contact Info) Description 04/11/2023 Procedure Pass [facility] [place], [address] [address] Social History Tobacco Use Types Packs/Day Years [...] AM EST documented as of this encounter Plan of Treatment Not on file documented as of this encounter Visit Diagnoses Not on filedocumented in this encounter Care Teams Mechanical Assembler Relationship Specialty Start Date End Date Yvon Shea PA 80 [facility] [address] [place] [address] PCP - General 02/25/21 documented as of this encounter Additional Source Comments The information contained in this document represents components of the legal health record. It is not the complete legal health record.[facility]
--- OUTSIDE RECORDS SUMMARY | 2025-03-13 12:11 | XMS_ITS | Encounter Summary ---
Author Organization [facility] Address [address] [place] [address] [place] [phone] Phone Care Team Providers Care Tower Erector Helper Name Role Phone Yvon Shea Primary Care Provid er Encounter Details Date Type Department Care Team (Late st Contact Info) Description 04/07/2023 Procedure Pass [facility] [address] [place] [address] Social History Tobacco Use Types Packs/Day Years [...] 4:25 PM EDT Tacho Villa RN * [place] Suicide Severity Rating Scale (Screener/Recent Self-Report) Question [...] on filedocumented in this encounter Care Teams Tower Erector Helper Relationship Specialty Start Date End Date [facility] Shea PA [facility] [address] [address] PCP - General 02/25/21 documented as of this encounter Additional Source Comments The information contained in this document represents components of the legal health record. It is not the complete legal health record.[facility]
--- OUTSIDE RECORDS SUMMARY | 2025-03-13 12:11 | XMS_ITS | Encounter Summary ---
Author Organization [facility] Address [address] [place] [address] [place] [phone] Phone Care Team Providers Care Processing Supervisor Name Role Phone Yvon Shea Primary Care Provid er Encounter Details Date Type Department Care Team (Late st Contact Info) Description 04/08/2023 Procedure Pass [facility], [facility] - [address] [address] Social History Tobacco Use Types Packs/Day Years [...] 4:25 PM EDT Tacho Villa RN * [place] Suicide Severity Rating Scale (Screener/Recent Self-Report) Question [...] on filedocumented in this encounter Care Teams Processing Supervisor Relationship Specialty Start Date End Date Yvon Shea PA [address] [address] PCP - General 02/25/21 documented as of this encounter Additional Source Comments The information contained in this document represents components of the legal health record. It is not the complete legal health record.[facility]
--- OUTSIDE RECORDS SUMMARY | 2025-03-13 12:11 | XMS_ITS | Encounter Summary ---
Author Organization [facility] Address [address] [place] [address] [place] [phone] Phone Care Team Providers Care Slat Basket Maker Machine Name Role Phone Yvon Shea Primary Care Provid er Encounter Details Date Type Department Care Team (Late st Contact Info) Description 04/12/2023 Procedure Pass [facility] [address] [place] [address] Social History Tobacco Use Types Packs/Day Years [...] on filedocumented in this encounter Care Teams Slat Basket Maker Machine Relationship Specialty Start Date End Date Yvon Shea PA [address] [address] PCP - General 02/25/21 documented as of this encounter Additional Source Comments The information contained in this document represents components of the legal health record. It is not the complete legal health record.[facility]
--- OUTSIDE RECORDS SUMMARY | 2025-03-13 12:11 | XMS_ITS | Clinical Summary ---
Author Organization [facility] Address [address] [place] [address] Phone Care Team Providers Care Crm Developer Name Role Phone Yvon Shea Primary Care Provider [phone] Allergies No known active allergies Medications atorvastatin (LIPITOR) 80 mg tablet Take 1 tablet (80 mg total) by mouth 1 (one) time each day. 30 each 07/10/2024 Active levETIRAcetam (KEPPRA) 750 mg tablet Take 1 tablet (750 mg total) by mouth 2 (two) times a day. 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 ([facility] V24, [facility] V28) 07/09/2024 Seizure ([facility] V24, [facility] V28) 2024 Medical History Medical History Date Comments HTN (hypertension) Stroke (cerebrum) ([facility] V24, [facility] V28) Social History Tobacco Use Types Packs/Day Years Used Date Smoking Tobacco: Never Assessed Health Literacy Answer Date Recorded How often do you need to hav e someone help you when you read instructions, pamphlets, or other written material from your doctor or pharmacy? Always 07/11/2024 Caregiver: How often do you need to have someone help you when you read instructions, pamphlets, or other written material from your doctor or pharmacy? Not on file 07/11/2024 Transportation Answer Date Recorded Has the lack of transportati on kept you from meetings, work, or from getting things needed for daily living? No Has the lack of transportati on kept you from medical appointments or from getting medications? No 2024 Social Isolation Answer Date Recorded How often do you feel lonely or isolated from th ose around you? Never 07/11/2024 Interpersonal Safety Answer Date Record ed Physical Abuse Unrecognized value 2024 Verbal Abuse Unrecognized value 2024 Sex and Gender Information Value Date Recorded Sex Assigned at Male 09/04/2024 12:17 PM EDT Legal Sex Male 1:37 PM EDT Gender Identity Male 09/04/2024 12:17 PM EDT Sexual Orientation Straight 2024 3: 56 PM EST Obstetrics History Last Filed Vital Signs Vital Sign Reading Time Taken Comments Blood Pressure 133/77 07/12/2024 9:41 AM EST Pulse 60 07/12/2024 9:41 AM EST Temperature 36.5 C (97.7 F) 07/12/2024 9:41 AM EST Respiratory Rate 16 07/12/2024 9:41 AM EST Oxygen Saturation 100% 07/12/2024 9:41 AM EST Inhaled Oxygen Concentration - - Weight 64.6 kg (142 lb 6.4 oz) 07/08/2024 8:24 A M EST Height 162 cm (5' 3.78 ) 2024 12:14 PM EST Body Mass Index 24.61 2024 12:14 PM EST Plan of Treatment Health Maintenance Due Date Last Done Comments Colorectal Cancer Screening: Colonoscopy 1950 Abdominal Aortic Aneurysm (AAA) Screen 01/11/2024 Hepatitis C Screening 01/11/2024 Medicare Annual Wellness Visit 01/11/2024 Hepatitis A Vaccines (3 of 3 - Hep A Twinrix risk 3-dose series) 02/01/2025 09/01/2024, 06/01/2024 Hepatitis B Vaccines (3 of 3 - Hep B Twinrix 3-dose series) 02/01/2025 09/01/2024, 06/01/2024 COVID-19 Vaccine (6 - season) 2025 02/29/2024, 03/15/2023, 03/09/2022, Additional history exists Influenza Vaccine (#1) 2025 , 03/24/2023, 03/08/2023, Additional history exists Hypertension/CHF/CAD Annual BMP Blood Test 07/11/2025 07/11/2024, 07/07/2024, 04/11/2023 Social Influencers of Health Screening 07/11/2025 07/11/2024 Falls Risk Assessment 07/12/2025 07/12/2024 Cholesterol Screening (Lipid Panel) 04/08/2028 04/08/2023 DTaP,Tdap,and Td Vaccines (7 - Td or Tdap) 02/25/2031 02/25/2021, 11/14/2013, 11/14/2013, Additional history exists Zoster Vaccines Completed 01/18/2018, 11/2017, 12/17/2014 Pneumococcal Vaccine: 50+ Years Completed 03/08/2023, 05/21/2015, 11/06/2014 RSV Immunization Adult Patients Completed 03/24/2023 Depression Screening Completed 07/11/2024 HIB Vaccines Aged Out No longer eligi ble based on patient's age to complete this topic HPV Vaccines Aged Out No longer eligi ble based on patient's age to complete this topic IPV Vaccines Aged Out No longer eligi ble based on patient's age to complete this topic MMR Vaccines Aged Out No longer eligi ble based on patient's age to complete this topic Meningococcal ACWY Vaccine Aged Out N o longer eligible based on patient's age to complete this topic Meningococcal B Vaccine Aged Out No l onger eligible based on patient's age to complete this topic RSV Immunization Patients Under 20 months Aged Out No longer eligible based on patient's age to complete this topic Varicella Vaccines Aged Out No longer eligible based on patient's age to complete this topic Procedures Procedure Name Priority Date/Time Associated Diagnosis Comments BASIC METABOLIC PANEL Routine 07/11/2024 5:10 AM EST from Last 3 Months or Most Recently Relevant to Health Maintenance Results * Basic metabolic panel (07/11/2024 5:10 AM EST) Sodium 142 133 - 145 mmol/L LAB CHEMISTRY METHOD 07/11/2024 7:10 AM [facility] Potassium 4.6 3.5 - 5.5 mmol/L LAB CHEMISTRY METHOD 07/11/2024 7:10 AM [facility] Chloride 110 96 - 110 mmol/L LAB CHEMISTRY METHOD 07/11/2024 7:10 AM [facility] CO2 28 21 - 32 mmol/L LAB CHEMISTRY METHOD 07/11/2024 7:10 AM [facility] Anion Gap 4 3 - 11 LAB CHEMISTRY METHOD 07/11/2024 7:10 AM [facility] Glucose 98 70 - 100 mg/dL LAB CHEMISTRY METHOD 07/11/2024 7:10 AM [facility] BUN 15 5 - 25 mg/dL LAB CHEMISTRY METHOD 07/11/2024 7:10 AM [facility] Creatinine 0.95 0.70 - 1.30 mg/dL LAB CHEMISTRY METHOD 07/11/2024 7:10 AM [facility] eGFR 83 >=60 mL/min/1. 73m2 LAB CHEMISTRY METHOD 07/11/2024 7:10 AM [facility] Comment:Calculation based on the Chronic Kidney Disease Epidemiology Collaboration (CKD-EPI) equation refit without adjustment for race. BUN/Creatinine Ratio 15.8 LAB CHEMISTRY METHOD 07/11/2024 7:10 AM [facility] Calcium 8.8 8.5 - 10.5 mg/dL LAB CHEMISTRY METHOD 07/11/2024 7:10 AM [facility] Blood Venous blood specimen / Unknown Venipuncture / Unknown 07/11/2024 5:10 AM EST 07/11/2024 5:37 AM EST Sera Real NP LAB BLOOD ORDERABLES Final Result [facility] [address] [place] [address], [place] [phone] from Last 3 Months or Most Recently Relevant to Health Maintenance Insurance MEDICARE Advance Directives Documents on File Type Date Recorded Patient Payroll Examiner Expl anation Health Care Decision (hx) 08/10/2023 HE ALTH CARE PROXY Health Care Decision (hx) 08/10/2023 HE ALTH CARE PROXY Health Care Decision (hx) 08/10/2023 HE ALTH CARE PROXY Advance Directives and Living Will 2024 2:09 PM HEALTH CARE PROXY * Full Code - Default (Latest Code Status on File) Date Activated Date Inactivated Comments 2024 2:59 PM 07/12/2024 5:02 PM This is orde r is used when code status has not been discussed with the patient, or code status is otherwise unknown/unconfirmed To update the patient's code status, place a code status order. Do not modify or discontinue any currently active code status orders. Healthcare Agents on File Name Relationship Healthcare Agent Relationship Communication John Molina Health Care Agent Idalia Jordan Significant Other Second Altern ate Health Care Agent Care Teams Crm Developer Relationship Specialty Start Date End Date Yvon Shea PA [address] [place] [address] PCP - General Physician Sugar Boiler 07/06/24
--- OUTSIDE RECORDS SUMMARY | 2025-03-13 12:11 | XMS_ITS | Clinical Summary ---
Author Organization [facility] Address [address] [place] [address] [place] [id number] Phone Care Team Providers Care Tank Systems Maintainer Name Role Phone Yvon Shea Primary Care Provid er Allergies No known active allergies Medications amLODIPine (NORVASC) 10 MG tablet Take 10 mg by mouth daily. 1 Active omeprazole (PRILOSEC) 20 MG tablet Take 20 mg by mouth 2 (two) times a week. Active aspirin 81 mg chewable tablet Take 1 tablet (81 mg total) by mouth daily. 30 tablet 5 3 Active atorvastatin (LIPITOR) 80 MG tablet Take 1 tablet (80 mg total) by mouth daily. 30 tablet 5 3 Active clopidogrel (PLAVIX) 75 mg tabletIndications:VB I (vertebrobasilar insufficiency),Intra cranial atherosclerosis Take 1 tablet (75 mg total) by mouth daily. 90 tablet 1 3 Active Active Problems Problem Noted Date Diagnosed Date Hypertension 04/08/2023 Assessment & Plan (04/10/2023 11:10 PM EDT): Continue amlodipine with holding parameters. Assessment & Plan (04/08/2023 1:21 PM EDT): BP has been stable -- Continue Norvasc Syncope 04/07/2023 Assessment & Plan (04/11/2023 12:55 PM EDT): Patient was recently discharged after extensive evaluation for syncope/near syncope episodes. Patient had cardiac monitoring without clear evidence of this arrhythmias. 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 MRI was negative for any acute ischemia. He was started on aspirin and high-dose statin. Patient had plans for follow-up with cardiology for monitor placement and recommended neurology follow-up. Currently patient have recurrent symptoms after being discharged. Focal neurological deficits noted on exam. Patient remained afebrile and hemodynamically stable. Laboratory studies without significant findings. -Neurology reconsulted, recommended starting dual antiplatelet with aspirin and Plavix for 3 weeks. -Continue aspirin and Plavix for 3 weeks -Will repeat MRI brain with DWI coronal section of brainstem -Cardiology consulted, will f/u recs -After 3 weeks, Plavix should be discontinued unless his episodes resolve suddenly on this combination therapy- that is to be decided by the outpatient neurologist who will follow him. Assessment & Plan (04/08/2023 1:22 PM EDT): Came to the ED after syncopal episode and previous episodes of near syncope. Work-up thus far unrevealing. Initial concern was that EtOH and cannabinoid use may have precipitated yesterday's event Today, he had another episode without LOC. He describes lightheadedness, vision loss and diaphoresis. During the episode, vital signs were normal and he remained in NSR on telemetry. No dysrhythmia Echo normal with EF 60% and no wall motion abnormality. D-dimer was normal. Given a recurrent episode today, need to broaden differential diagnosis to consider neurologic causes including TIA, posterior circulation, seizure --CTA head/neck stat --EEG -- Continue library monitor Immunizations Immunization Administration Dates Next Due Tdap 02/25/2021 Family History Relation Status Comments Mother Social History Tobacco Use Types Packs/Day Years Used Date Smoking Tobacco: Never Smokeless Tobacco: Never Tobacco Cessation:Counseling Given: Not Answered Alcohol Use Standard Drinks/Week Comments Yes 7 [...] Orientation Straight 04/26/2023 9: 16 AM EST Last Filed Vital Signs Vital Sign Reading Time Taken Comments Blood Pressure 150/80 05/25/2023 2:25 PM EST Pulse 69 05/25/2023 2:25 PM EST Temperature 36.8 C (98.2 F) 05/03/2023 8:25 AM EST Respiratory Rate 18 04/12/2023 5:32 AM EDT Oxygen Saturation 98% 05/25/2023 2:25 PM EST Inhaled Oxygen Concentration - - Weight 65.8 kg (145 lb) 05/25/2023 2:25 PM EST Height 165.1 cm (5' 5 ) 05/25/2023 2:25 PM EST Body Mass Index 24.13 05/25/2023 2:25 PM EST Plan of Treatment Health Maintenance Due Date Last Done Comments DEPRESSION SCREENING 1961 HEPATITIS C SCREENING 1967 COLOGUARD 1994 COLONOSCOPY 1994 COLORECTAL CANCER SCREENING 1994 FIT TEST 1994 FOBT 1994 SIGMOIDOSCOPY 1994 VIRTUAL COLONOSCOPY 1994 PNEUMOCOCCAL VACCINES (50+ years) (1 of 1 - PCV) 1999 BLOOD PRESSURE 11/24/2023 05/25/2023 RSV VACCINE (1 - 1-dose 75+ series) 2024 INFLUENZA VACCINE (#1) 2025 , 03/25/2022, 03/09/2022, Additional history exists COVID-19 VACCINE (2024- season) 2025 03/09/2022, 04/12/2021, 08/27/2020 LIPID PANEL 04/08/2028 04/08/2023 Adult Td,Tdap Booster 02/25/2031 02/25/2021 , 11/14/2013, 12/19/2010, Additional history exists ZOSTER VACCINES Completed 01/18/2018, 08/17/2017 SMOKING STATUS SCREENING (Once After 26 Yrs) Completed 05/25/2023 HEPATITIS A VACCINES Aged Out No long er eligible based on patient's age to complete this topic HIB VACCINES Aged Out No longer eligi ble based on patient's age to complete this topic MENINGOCOCCAL VACCINES (ACWY) Aged Out No longer eligible based on patient's age to complete this topic MENINGOCOCCAL VACCINES (B) Aged Out N o longer eligible based on patient's age to complete this topic Medical Devices Not on file Procedures Procedure Name Priority Date/Time Associated Diagnosis Comments LIPID PANEL Routine 04/08/2023 6:18 AM EDT from Last 3 Months or Most Recently Relevant to Health Maintenance Results * Lipid panel (04/08/2023 6:18 AM EDT) HDL 47 mg/dL [facility] Comment: Interpretation <40 mg/dL: Low HDL cholesterol (major risk factor for CHD) Greater than or equal to 60 mg/dL: High HDL cholesterol ( negative risk factor for CHD) HDL - cholesterol is affected by a number of factors, e.g. smoking, excerise, hormones, sex and age. CHOLESTEROL 191 0 - 240 mg/dL [facility] TRIGLYCERIDES 141 30 - 160 mg/dL [facility] LDL 116 50 - 129 mg/dL [facility] Comment: LDL levels in terms of risk for coronary heart disease: <100 mg/dL: Optimal 100-129 mg/dL: Near or above optimal 130-159 mg/dL: Borderline high 160-189 mg/dL: High >190 mg/dL: Very High CARDIAC RISK RATIO 4.1 3.4 - 5.0 C [facility] Blood 04/08/2023 6:18 AM EDT 04/08/2023 7:16 AM EDT Maryse Bridges MD LAB BLOOD ORDERABLES Final Result [facility] [address] [place] [address] from Last 3 Months or Most Recently Relevant to Health Maintenance Insurance [facility] MEDICARE PART A & B [facility] MEDICARE PART A & B MEDICARE PART A & B [facility] MEDICARE PART A & B MEDICARE PART A & B [facility] MEDICARE PART A & B [employer] Advance Directives For more information, please contact: [phone] (9AM - 5PM [facility], Wednesday-Wednesday) * Full Code (Latest Code Status on File) Date Activated Date Inactivated Comments 04/10/2023 10:13 PM Question Answer Comments Code Status Confirmed With: Patient Code Status Communicated To: Inpatient Attending * Full Code Date Activated Date Inactivated Comments 04/07/2023 10:15 PM 04/10/2023 10:13 PM Question Answer Comments Code Status Confirmed With: Patient Care Teams Tank Systems Maintainer Relationship Specialty Start Date End Date Yvon Shea PA [address] [phone] PCP - General 02/25/21 Additional Source Comments The information contained in this document represents components of the legal health record. It is not the complete legal health record.[facility]
[2025-03-13 12:38] LABS: Prostate Specific Antigen 3.79 ng/mL (<0.05-4.0)
== END 2025-03-13 10:50 | disposition home or self-care (01) ==
LOC: HO.LAB 10:49
PROVIDERS: PCP Physician Assistant; Visit Provider Urology
DX: R97.20 Elevated prostate specific antigen [PSA] (principal); Z12.5 Encounter for screening for malignant neoplasm of prostate
CPT/HCPCS: 36415; 84153

== ENCOUNTER 2025-03-21 10:30 | Outpatient (AMB) | payer OTHER, SELFPAY ==
--- NOTE | 2025-03-21 10:38 | A.OFFVIS_ITS ---
Intake Visit Reasons: 1y/PSA Intake Note: Patient is Present for 1 yr follow up Urology Med: None Antibiotic Allergy:None Blood Thinner: None PVR:7 MLS Recent PSA: 03/13/2025- 3.79 Wafer Abrading Machine Tender Required: No Accompanied by: Self / Same As Patient Allergies No Known Allergies Allergy (Verified 03/21/25 10:39) HPI Comments Details: Cesar is a very pleasant male. He is seen by Dr Mckinney. He is seen for the following urologic conditions - asymmetric prostate exam - elevated PSA Slow rise in PSA 12 month follow-up Lower urinary tract symptoms Nocturia 1-2 Effective force of stream Minimal hesitancy PSA 01/01 3.2, 03/05 3.3, 03/06 3.8, 03/07 2.6, 03/08 3.8 PFSH Medical History GERD (gastroesophageal reflux disease) Hypertension Depression Surgical History No pertinent past surgical history Social History Alcohol intake: current Alcohol intake frequency: holidays/special occasions only Alcohol type: beer and wine Patient Tobacco Use Status: Never used Tobacco Office Procedures Post Void Residual Post Residual Void Post Void Residual (PVR): 7 [id number] Void Residual by ultrasound Results AMB Urinalysis, Automated UA Leukoctes 0 Sander/uL Last Edit by Tania Bond MA on 03/21/25 16:46 UA Nitrite Negative Last Edit by Tania Bond MA on 03/21/25 16:46 UA Urobilinogen 0.2 mg/dL Last Edit by Tania Bond MA on 03/21/25 16:46 UA Protein 0 mg/dL Last Edit by Tania Bond MA on 03/21/25 16:46 UA pH 6.0 Last Edit by Tania Bond MA on 03/21/25 16:46 UA Blood 0 Nadir/uL Last Edit by Tania Bond MA on 03/21/25 16:46 UA Specific [place] 1.015 Last Edit by Tania Bond MA on 03/21/25 16:46 UA Ketone Negative Last Edit by Tania Bond MA on 03/21/25 16:46 UA Bilirubin 0 mg/dL Last Edit by Tania Bond MA on 03/21/25 16:46 UA Glucose 0 mg/dL Last Edit by Tania Bond MA on 03/21/25 16:46 Assessment & Plan Assessment & Plan (1) BPH w urinary obs/LUTS: Code(s): N40.1 - Benign prostatic hyperplasia with lower urinary tract symptoms; N13.8 - Other obstructive and reflux uropathy Category: Medical (2) Elevated PSA: Code(s): R97.20 - Elevated prostate specific antigen [PSA] Category: Medical Orders: Orders AMB Post Void Residual by ultrasound Today N13.8 - Other obstructive and reflux uropathy, N40.1 - Benign prostatic hyperplasia with lower urinary tract symptoms Prostate Specific Antigen 12 Months R97.20 - Elevated prostate specific antigen [PSA] AMB Urinalysis Automated Today Z13.9 - Encounter for screening, unspecified Coding Diagnoses BPH w urinary obs/LUTS N40.1; N13.8 Elevated PSA R97.20 CPT Codes Post Residual Void - PVR CPT Code: [id number] Void Residual by ultrasound ([id number])
== END 2025-03-21 11:33 | disposition home or self-care (01) ==
LOC: HO.HUSH 10:31
PROVIDERS: PCP Physician Assistant; Visit Provider Urology
DX: Z13.9 Encounter for screening, unspecified (principal)

== ENCOUNTER → 2025-03-21 10:30 | Outpatient (BNVA) | payer OTHER, SELFPAY | PROVIDERS: PCP Physician Assistant; Visit Provider Urology | DX: N40.1 Benign prostatic hyperplasia with lower urinary tract symptoms (principal); N13.8 Other obstructive and reflux uropathy | CPT/HCPCS: 51798; 81003 ==